=== PATIENT | male | born 1960 | race Caucasian/White ===

== ENCOUNTER 2017-02-09 07:59 | Outpatient (CLI) | payer OTHER ==
[2017-02-09 11:51] LABS: BUN - BLOOD UREA NITROGEN 18 mg/dL (6-20); CALCIUM 8.9 mg/dL (8.5-10.3); CARBON DIOXIDE - CO2 27 mmol/L (21-32); CHLORIDE 101 mmol/L (101-111); CHOL/HDL RATIO 4.3 (<5.0); CHOLESTEROL 156 mg/dL; GFR - MDRD 77 (>89); GLUCOSE 323 mg/dL (70-100); HDL CHOLESTEROL 36 mg/dL; LDL/HDL RATIO 2.8 (<3.6); POTASSIUM 4.3 mmol/L (3.5-5.0); SODIUM 136 mmol/L (135-145); TRIGLYCERIDES 99 mg/dL; VLDL CHOLESTEROL 20 mg/dL
[2017-02-09 12:10] LABS: HEMOGLOBIN A1C 1.7 g/dL
== END 2017-02-09 08:00 | disposition home or self-care (01) ==
LOC: LAB.F 07:59
PROVIDERS: ATTEND Internal Medicine
DX: Z00.00 Encounter for general adult medical examination without abnormal findings (principal); J30.9 Allergic rhinitis, unspecified; E11.9 Type 2 diabetes mellitus without complications; E78.5 Hyperlipidemia, unspecified; M23.50 Chronic instability of knee, unspecified knee; Z12.11 Encounter for screening for malignant neoplasm of colon; Z11.59 Encounter for screening for other viral diseases
CPT/HCPCS: 36415; 80048; 80061; 82043; 82570; 83036; 86803

== ENCOUNTER 2017-04-07 08:21 | Outpatient (CLI) | payer OTHER ==
[2017-04-07 10:39] LABS: HB2 TOTAL 12.6 g/dL; HEMOGLOBIN A1C 1.03 g/dL; HEMOGLOBIN A1C % 9.6 % (4.6-6.2)
== END 2017-04-07 08:22 | disposition home or self-care (01) ==
LOC: LAB.F 08:21
PROVIDERS: ATTEND Internal Medicine
DX: Z00.00 Encounter for general adult medical examination without abnormal findings (principal); J30.9 Allergic rhinitis, unspecified; E11.9 Type 2 diabetes mellitus without complications; E78.5 Hyperlipidemia, unspecified; Z12.11 Encounter for screening for malignant neoplasm of colon
CPT/HCPCS: 36415; 83036

== ENCOUNTER 2017-12-28 19:20 | Outpatient (CLI) | payer OTHER | END 2017-12-28 19:21 | disposition EMS.NT | LOC: EMS 19:20 | PROVIDERS: ATTEND Surgery | DX: R10.9 Unspecified abdominal pain (principal) ==

== ENCOUNTER 2018-01-29 09:12 | Outpatient (CLI) | payer OTHER ==
[2018-01-29 18:42] LABS: BUN - BLOOD UREA NITROGEN 21 mg/dL (6-20); CALCIUM 8.8 mg/dL (8.5-10.3); CARBON DIOXIDE - CO2 29 mmol/L (21-32); CHLORIDE 101 mmol/L (101-111); CHOL/HDL RATIO 3.3 (<5.0); CHOLESTEROL 136 mg/dL; GFR - MDRD 76 (>89); GLUCOSE 178 mg/dL (70-100); HDL CHOLESTEROL 41 mg/dL; LDL CHOLESTEROL,CALCULATED 79 mg/dL; LDL/HDL RATIO 1.9 (<3.6); SODIUM 137 mmol/L (135-145); VLDL CHOLESTEROL 16 mg/dL
[2018-01-29 18:43] LABS: CREATININE,URINE 203.4 mg/dL; MICROALBUM/CREATININE RATIO,UR 42.8 ug/mg (<30.0); MICROALBUMIN,URINE 8.7 mg/dL (0-300.0)
[2018-01-29 19:10] LABS: HB2 TOTAL 15.5 g/dL; HEMOGLOBIN A1C 1.32 g/dL; HEMOGLOBIN A1C % 9.9 % (4.6-6.2)
== END 2018-01-29 09:13 | disposition home or self-care (01) ==
LOC: LAB.F 09:12
PROVIDERS: ATTEND Internal Medicine
DX: Z00.00 Encounter for general adult medical examination without abnormal findings (principal); H35.30 Unspecified macular degeneration; J30.9 Allergic rhinitis, unspecified; R07.9 Chest pain, unspecified; E11.40 Type 2 diabetes mellitus with diabetic neuropathy, unspecified; E11.319 Type 2 diabetes mellitus with unspecified diabetic retinopathy without macular edema; R03.0 Elevated blood-pressure reading, without diagnosis of hypertension; E78.5 Hyperlipidemia, unspecified; E11.21 Type 2 diabetes mellitus with diabetic nephropathy; M23.50 Chronic instability of knee, unspecified knee; Z12.11 Encounter for screening for malignant neoplasm of colon
CPT/HCPCS: 36415; 80048; 80061; 82043; 82570; 83036; 83721; 84156

== ENCOUNTER 2018-11-14 08:12 | Outpatient (CLI) | payer OTHER ==
[2018-11-14 10:22] LABS: HB2 TOTAL 12.2 g/dL; HEMOGLOBIN A1C 1.02 g/dL; HEMOGLOBIN A1C % 9.8 % (4.6-6.2)
== END 2018-11-14 08:13 | disposition home or self-care (01) ==
LOC: LAB.S 08:12
PROVIDERS: ATTEND Internal Medicine
DX: E11.9 Type 2 diabetes mellitus without complications (principal)
CPT/HCPCS: 36415; 83036

== ENCOUNTER 2018-12-25 09:19 | Outpatient (CLI) | payer OTHER ==
[2018-12-25 18:13] LABS: HB2 TOTAL 12.3 g/dL; HEMOGLOBIN A1C 0.73 g/dL; HEMOGLOBIN A1C % 7.6 % (4.6-6.2)
== END 2018-12-25 09:20 | disposition home or self-care (01) ==
LOC: LAB.S 09:19
PROVIDERS: ATTEND Internal Medicine
DX: E11.9 Type 2 diabetes mellitus without complications (principal); Z12.11 Encounter for screening for malignant neoplasm of colon
CPT/HCPCS: 36415; 83036

== ENCOUNTER 2019-02-18 10:54 | Outpatient (CLI) | payer OTHER ==
[2019-02-18 18:03] LABS: BUN - BLOOD UREA NITROGEN 25 mg/dL (6-20); CARBON DIOXIDE - CO2 29 mmol/L (21-32); CHLORIDE 99 mmol/L (101-111); CHOL/HDL RATIO 4.1 (<5.0); CHOLESTEROL 186 mg/dL; CREATININE 1.2 mg/dL (0.6-1.2); GFR - MDRD 62 (>89); GLUCOSE 341 mg/dL (70-100); HDL CHOLESTEROL 45 mg/dL; LDL CHOLESTEROL,CALCULATED 118 mg/dL; LDL/HDL RATIO 2.6 (<3.6); SODIUM 136 mmol/L (135-145); VLDL CHOLESTEROL 23 mg/dL
[2019-02-18 18:09] LABS: CREATININE,URINE 47.8 mg/dL; MICROALBUM/CREATININE RATIO,UR 81.6 ug/mg (<30.0); MICROALBUMIN,URINE 3.9 mg/dL (0-300.0)
[2019-02-18 18:52] LABS: HB2 TOTAL 12.6 g/dL; HEMOGLOBIN A1C 0.7 g/dL; HEMOGLOBIN A1C % 7.2 % (4.6-6.2)
== END 2019-02-18 10:55 | disposition home or self-care (01) ==
LOC: LAB.S 10:54
PROVIDERS: ATTEND Internal Medicine
DX: Z00.00 Encounter for general adult medical examination without abnormal findings (principal); Z12.11 Encounter for screening for malignant neoplasm of colon; J30.9 Allergic rhinitis, unspecified; H35.30 Unspecified macular degeneration; E11.21 Type 2 diabetes mellitus with diabetic nephropathy; E11.319 Type 2 diabetes mellitus with unspecified diabetic retinopathy without macular edema; E78.5 Hyperlipidemia, unspecified
CPT/HCPCS: 36415; 80048; 80061; 82043; 82270; 82274; 82570; 83036; 83721

== ENCOUNTER 2019-05-10 09:57 | Outpatient (CLI) | payer OTHER ==
[2019-05-10 18:21] LABS: HB2 TOTAL 13.1 g/dL; HEMOGLOBIN A1C 0.69 g/dL
== END 2019-05-10 09:58 | disposition home or self-care (01) ==
LOC: LAB.S 09:57
PROVIDERS: ATTEND Internal Medicine
DX: E11.9 Type 2 diabetes mellitus without complications (principal)
CPT/HCPCS: 36415; 83036

== ENCOUNTER 2020-01-09 08:24 | Outpatient (CLI) | payer OTHER ==
[2020-01-09 16:05] LABS: CREATININE,URINE 322.5 mg/dL; MICROALBUM/CREATININE RATIO,UR 18.9 ug/mg (<30.0); MICROALBUMIN,URINE 6.1 mg/dL (0-300.0)
[2020-01-09 16:08] LABS: BUN - BLOOD UREA NITROGEN 41 mg/dL (6-20); CALCIUM 8.9 mg/dL (8.5-10.3); CARBON DIOXIDE - CO2 28 mmol/L (21-32); CHLORIDE 104 mmol/L (101-111); CHOL/HDL RATIO 3.9 (<5.0); CHOLESTEROL 147 mg/dL; CREATININE 1.5 mg/dL (0.6-1.2); GLUCOSE 128 mg/dL (70-100); HDL CHOLESTEROL 38 mg/dL; LDL CHOLESTEROL,CALCULATED 93 mg/dL; LDL/HDL RATIO 2.4 (<3.6); SODIUM 139 mmol/L (135-145); VLDL CHOLESTEROL 16 mg/dL
[2020-01-09 19:51] LABS: HEMOGLOBIN A1c% 6.9 % (4.27-6.07)
== END 2020-01-09 08:25 | disposition home or self-care (01) ==
LOC: LAB.S 08:24
PROVIDERS: ATTEND Internal Medicine
DX: E11.9 Type 2 diabetes mellitus without complications (principal); E78.5 Hyperlipidemia, unspecified
CPT/HCPCS: 36415; 80048; 80061; 82043; 82570; 83036; 83721

== ENCOUNTER 2020-01-11 16:23 | Outpatient (CLI) | payer OTHER | END 2020-01-11 16:24 | disposition critical access hospital (66) | LOC: EMS 16:23 | PROVIDERS: ATTEND Surgery | DX: S01.01XA Laceration without foreign body of scalp, initial encounter (principal); R11.2 Nausea with vomiting, unspecified; W20.8XXA Other cause of strike by thrown, projected or falling object, initial encounter; Y93.89 Activity, other specified; Y92.009 Unspecified place in unspecified non-institutional (private) residence as the place of occurrence of the external cause | CPT/HCPCS: A0425; A0427 ==

== ENCOUNTER 2020-01-11 17:06 | Emergency (ER) | payer OTHER ==
[2020-01-11] MEDS ORDERED: ONDANSETRON 4 MG/2 ML VIAL IVP STA (17:10)
--- NOTE | 2020-01-11 17:11 | ED Physician Documentation ---
PD HPI HEADACHE - Stated complaint Stated Complaint: HEAD LAC - History obtained from History obtained from: Patient - Additional information Additional information: He was moving brush with his tractor, accidentally hit a tree and a large branch fell down and hit him on the top of the head with loss of consciousness. Has a mild headache but has vomited several times. No other injuries. He is up-to-date on tetanus. Review of Systems Constitutional: reports: Reviewed and negative Ears: reports: Reviewed and negative Nose: reports: Reviewed and negative Throat: reports: Reviewed and negative PD PAST MEDICAL HISTORY - Past Medical History Cardiovascular: High cholesterol Respiratory: None Endocrine/Autoimmune: Type 2 diabetes GI: None : None Psych: None Musculoskeletal: None Derm: None - Past Surgical History Past Surgical History: No - Present Medications Home Medications: Ambulatory Orders Medication Instructions Recorded Confirmed Metformin HCl [Fortamet] 1,000 mg PO BID 12/14/12 12/14/12 Simvastatin [Zocor] 80 mg PO HS 12/14/12 12/14/12 Mometasone Furoate [Nasonex] 1 spray NS BID #1 spray.pump 01/11/20 - Allergies Allergies/Adverse Reactions: Allergies Allergy/AdvReac Type Severity Reaction Status Date / Time aspirin [From Percodan] Allergy Nausea Verified 01/11/20 17:12 oxycodone [From Percodan] Allergy Nausea Verified 01/11/20 17:12 - Social History Does the pt smoke?: Yes Smoking Status: Current some day smoker Does the pt drink ETOH?: No Does the pt have substance abuse?: No - Immunizations Immunizations are current?: Yes - POLST Patient has POLST: No PD ED PE NORMAL - Vitals Vital signs reviewed: Yes - General General: Alert and oriented X 3, No acute distress - HEENT HEENT: PERRL, EOMI, Other (There is a shallow laceration measuring 3 cm on the right frontal parietal area.) - Neck Neck: No bony TTP (But maintained in a c-collar pending imaging given potential head injury.) - Neuro Neuro: Alert and oriented X 3, No motor deficit, No sensory deficit, Normal speech Results - Vitals Vitals: Vital Signs - 24 hr 01/11/20 17:06 Temperature 36.5 C Heart Rate 90 Respiratory 18 Rate Blood Pressure 163/118 H O2 Saturation 99 Oxygen O2 Source Room air - Rads (name of study) CT Head and C spine Radiology: EMP read contemporaneously (Degenerative changes, sinus disease, no intracranial hemorrhage or skull fracture or C-spine fracture) Procedures - Laceration (location) Scalp Length in cm: 2 Wound type: Stellate Wound Preparation: Irrigated copiously NS Skin layer closure: Dermabond Other: Tetanus UTD Complexity: Simple PD MEDICAL DECISION MAKING - ED course ED course: 59-year-old gentleman presents after being hit in the head with a large branch that fell from a height. He seems slightly concussed with loss of consciousness and nausea/vomiting. CT showed incidental findings. He already knew about the sinus disease and is seeing ENT, will start a nasal steroid. On further exam after wound irrigation the scalp laceration did need a closure and was closed with Dermabond. Departure - Departure Disposition: 01 Home, Self Care Clinical Impression: Concussion Qualifiers: Encounter type: initial encounter Loss of consciousness presence/duration: with LOC of 30 min or less Qualified Code(s): S06.0X1A - Concussion with loss of consciousness of 30 minutes or less, initial encounter Scalp laceration Qualifiers: Encounter type: initial encounter Qualified Code(s): S01.01XA - Laceration without foreign body of scalp, initial encounter Condition: Good Record reviewed to determine appropriate education?: Yes Instructions: ED Laceration Facial Skin Glue, ED Concussion Prescriptions: Mometasone Furoate [Nasonex] 1 spray NS BID #1 spray.pump Comments: Follow-up with your ENT surgeon, return if worsening.
--- NOTE | 2020-01-11 17:34 | CT Report ---
PROCEDURE: HEAD WO INDICATIONS: head injury TECHNIQUE: Noncontrast 4.5 mm thick angled axial sections acquired from the foramen magnum to the vertex. For r adiation dose reduction, the following was used: automated exposure control, adjustment of mA and/or kV according to patient size. COMPARISON: Correlation is made with a coming cervical spine CT, 01/11/2020 FINDINGS: Image quality: Excellent. CSF spaces: Basal cisterns are patent. No extra-axial fluid collections. Ventricles are normal in size and shape. Brain: No midline shift. No intracranial masses or hemorrhage. Dominguez-white matter interface is norm al. Skull and face: There is minimal scalp thickening with laceration and hemorrhage involving the right anterior superior scalp. No underlying calvarial fracture is seen. Calvarium and visualized facial b ones are intact, without suspicious lesions. Sinuses: There is subtotal opacification of the left maxillary sinus. Prominent mucosal thickening is seen within the ethmoid air cells. Milder mucosal thickening is seen elsewhere within the visualized paranasal sinuses. No significant abnormal fluid can be seen within the mastoid air cells or within the middle ear cavities. IMPRESSION: No intracranial hemorrhage is seen. No significant intracranial abnormality is seen. Right superior anterior scalp laceration, without an associated fracture. Prominent paranasal sinus disease can be seen. Reviewed by: Alen Blackwood MD on 01/11/2020 4:33 PM [facility] Approved by: Alen Blackwood MD on 01/11/2020 4:33 PM [facility] Station ID: [id number]
--- NOTE | 2020-01-11 17:36 | CT Report ---
PROCEDURE: CERVICAL SPINE WO INDICATIONS: head injury TECHNIQUE: Noncontrast 3 mm thick sections acquired from the skull base to the T4 level. Sagittal and coronal r eformats were then constructed. For radiation dose reduction, the following was used: automated exp osure control, adjustment of mA and/or kV according to patient size. COMPARISON: Correlation is made with the accompanying head CT, 01/11/2020. FINDINGS: Image quality: This study is limited by quantum mottle artifact. Bones: No fractures or dislocations. Visualized superior ribs are intact. Degenerative changes are seen, with moderate to severe disc space narrowing at C5-C6, with associated endplate irregularity and bony bridging anteriorly. Focal degenerative change can also be seen invol ving the C1-C2 interface anteriorly. Milder degenerative changes are seen elsewhere. Soft tissues: Prevertebral soft tissues are normal in thickness. No paravertebral hematomas. No ap ical pneumothoraces. IMPRESSION: No displaced fractures are identified. Focal C5-C6 degenerative change. Reviewed by: Alen Blackwood MD on 01/11/2020 4:35 PM [facility] Approved by: Alen Blackwood MD on 01/11/2020 4:35 PM [facility] Station ID: [id number]
[2020-01-11 18:10] VITALS: BP 168/92
== END 2020-01-11 18:08 | disposition home or self-care (01) ==
LOC: EDUNIT# → ED 17:06
DX: S06.0X1A Concussion with loss of consciousness of 30 minutes or less, initial encounter (principal); S01.01XA Laceration without foreign body of scalp, initial encounter; W22.8XXA Striking against or struck by other objects, initial encounter; Y93.H2 Activity, gardening and landscaping; E11.9 Type 2 diabetes mellitus without complications; Z79.84 Long term (current) use of oral hypoglycemic drugs; F17.200 Nicotine dependence, unspecified, uncomplicated
CPT/HCPCS: 12001; 70450; 72125; 99283

== ENCOUNTER 2020-04-01 11:12 | Outpatient (CLI) | payer OTHER ==
[2020-04-01 16:49] LABS: BUN - BLOOD UREA NITROGEN 22 mg/dL (6-20); CALCIUM 8.9 mg/dL (8.5-10.3); CARBON DIOXIDE - CO2 28 mmol/L (21-32); CHLORIDE 99 mmol/L (101-111); CHOL/HDL RATIO 4.3 (<5.0); CHOLESTEROL 184 mg/dL; CREATININE 1.2 mg/dL (0.6-1.2); GLUCOSE 327 mg/dL (70-100); HDL CHOLESTEROL 43 mg/dL; LDL CHOLESTEROL,CALCULATED 115 mg/dL; LDL/HDL RATIO 2.7 (<3.6); SODIUM 138 mmol/L (135-145); VLDL CHOLESTEROL 26 mg/dL
[2020-04-01 17:19] LABS: CREATININE,URINE 46.1 mg/dL; MICROALBUM/CREATININE RATIO,UR 34.7 ug/mg (<30.0); MICROALBUMIN,URINE 1.6 mg/dL (0-300.0)
[2020-04-01 19:22] LABS: HEMOGLOBIN A1c% 6.6 % (4.27-6.07)
== END 2020-04-01 11:13 | disposition home or self-care (01) ==
LOC: LAB.S 11:12
PROVIDERS: ATTEND Internal Medicine
DX: E11.9 Type 2 diabetes mellitus without complications (principal); E78.5 Hyperlipidemia, unspecified
CPT/HCPCS: 36415; 80048; 80061; 82043; 82570; 83036; 83721

== ENCOUNTER 2020-04-28 09:29 | Outpatient (CLI) | payer OTHER ==
[2020-04-28 15:22] LABS: CALCIUM 8.8 mg/dL (8.5-10.3); CREATININE 1.3 mg/dL (0.6-1.2)
== END 2020-04-28 09:30 | disposition home or self-care (01) ==
LOC: LAB.S 09:29
PROVIDERS: ATTEND Internal Medicine
DX: E11.9 Type 2 diabetes mellitus without complications (principal)
CPT/HCPCS: 36415; 80048

== ENCOUNTER 2021-04-09 09:45 | Outpatient (CLI) | payer OTHER ==
[2021-04-09 15:43] LABS: ESTIMATED AVERAGE GLUCOSE 163 mg/dL (70-100); HEMOGLOBIN A1c% 7.3 % (4.27-6.07)
[2021-04-09 15:48] LABS: MICROALBUM/CREATININE RATIO,UR 19.8 ug/mg (<30.0)
[2021-04-09 15:51] LABS: BUN - BLOOD UREA NITROGEN 19 mg/dL (6-20); CALCIUM 8.5 mg/dL (8.5-10.3); CARBON DIOXIDE - CO2 28 mmol/L (21-32); CHLORIDE 101 mmol/L (101-111); CHOL/HDL RATIO 5.7 (<5.0); CHOLESTEROL 240 mg/dL; CREATININE 1.1 mg/dL (0.6-1.2); GFR - MDRD 68 (>89); GLUCOSE 222 mg/dL (70-100); HDL CHOLESTEROL 42 mg/dL; LDL CHOLESTEROL,CALCULATED 177 mg/dL; LDL/HDL RATIO 4.2 (<3.6); POTASSIUM 4.3 mmol/L (3.5-5.0); SODIUM 136 mmol/L (135-145); TRIGLYCERIDES 106 mg/dL; VLDL CHOLESTEROL 21 mg/dL
== END 2021-04-09 09:46 | disposition home or self-care (01) ==
LOC: LAB.S 09:45
PROVIDERS: ATTEND Internal Medicine
DX: E11.9 Type 2 diabetes mellitus without complications (principal); I10 Essential (primary) hypertension
CPT/HCPCS: 36415; 80048; 80061; 82043; 82570; 83036; 83721

== ENCOUNTER 2022-01-07 21:47 | Emergency (ER) | payer OTHER ==
[2022-01-07] MEDS ORDERED: oxyCODONE/ACET 5/325 Prepack 4 PO STA (22:38)
[2022-01-07] MEDS ORDERED: PENICILLIN VK 250 MG TABLET PO STA (22:38)
--- NOTE | 2022-01-07 22:59 | ED Physician Documentation ---
PD HPI HEENT - Stated complaint Stated Complaint: TOOTH PX/LOW BLOOD SUGAR - Chief complaint Chief Complaint: Heent - History obtained from History obtained from: Patient - Additional information Additional information: Patient is a 61-year-old insulin-dependent diabetic presenting for evaluation of left upper and lower dental pain that has been worsening for the last 2 days. He took his normal insulin this evening but the pain in his teeth prevented him from eating any food and he felt that his blood sugar was low.He was given juice after blood sugar was checked at triage and is starting to feel better. Review of Systems Constitutional: denies: Fever Throat: reports: Dental pain / toothache Cardiac: denies: Chest pain / pressure Respiratory: denies: Dyspnea GI: denies: Abdominal Pain Musculoskeletal: denies: Back pain Neurologic: denies: Headache PD PAST MEDICAL HISTORY - Past Medical History Cardiovascular: High cholesterol Respiratory: None Endocrine/Autoimmune: Type 2 diabetes GI: None : None Psych: None Musculoskeletal: None Derm: None - Past Surgical History Past Surgical History: No - Present Medications Home Medications: Ambulatory Orders Medication Instructions Recorded Confirmed Metformin HCl [Fortamet] 1,000 mg PO BID 12/14/12 12/14/12 Simvastatin [Zocor] 80 mg PO HS 12/14/12 12/14/12 Mometasone Furoate [Nasonex] 1 spray NS BID #1 spray.pump 01/11/20 Oxycodone HCl/Acetaminophen 1 each PO Q6H PRN #10 tablet 01/07/22 [Percocet 5-325 mg Tablet] Penicillin V Potassium 500 mg PO Q6HR 7 Days #28 tablet 01/07/22 - Allergies Allergies/Adverse Reactions: Allergies Allergy/AdvReac Type Severity Reaction Status Date / Time aspirin [From Percodan] Allergy Nausea Verified 01/07/22 22:02 oxycodone [From Percodan] Allergy Nausea Verified 01/07/22 22:02 - Social History Does the pt smoke?: Yes Smoking Status: Current some day smoker Does the pt drink ETOH?: No Does the pt have substance abuse?: No - Immunizations Immunizations are current?: Yes - POLST Patient has POLST: No PD ED PE NORMAL - General General: Alert and oriented X 3, No acute distress, Well developed/nourished - HEENT HEENT: Atraumatic, Moist mucous membranes, Pharynx benign. No: Dentition benign (Tenderness to left upper and lower molars with fillings in place, no visible abscess or exposed nerve, no oral swelling, normal speech) - Cardiac Cardiac: RRR, Strong equal pulses - Respiratory Respiratory: No respiratory distress - Abdomen Abdomen: Soft, Non tender - Derm Derm: Warm and dry - Extremities Extremities: No edema - Neuro Neuro: Alert and oriented X 3, No motor deficit, Normal speech Results - Vitals Vitals: Vital Signs - 24 hr 01/07/22 01/07/22 21:54 23:06 Temperature 36 C L 36.4 C L Heart Rate 88 80 Respiratory 18 18 Rate Blood Pressure 159/82 H 128/87 H O2 Saturation 98 100 Oxygen O2 Source Room air - Labs Labs: Laboratory Tests 01/07/22 01/07/22 22:07 22:50 POC Whole Bld Glucose 59 L* 79 PD MEDICAL DECISION MAKING - ED course ED course: Patient with dental pain. No signs of oral abscess. No signs of airway compromise. Patient started on antibiotics and given pain medication to help him eat as he is an insulin-dependent diabetic and did not want to eat this evening due to the pain. His blood sugar was noted to be 59 and it did improve with juice. I offered a sandwich but he declined as he has pizza waiting for him at home and feels that he will be able to eat it. His partner at the bedside also has a protein shake for him in the car. He will check his blood sugar this evening before going to bed. He is advised on concerning symptoms to return for as well as need for dental follow-up. Departure - Departure Disposition: 01 Home, Self Care Clinical Impression: Dental infection, Hypoglycemia Condition: Stable Instructions: ED Tooth Pain, ED Diabetes Hypoglycemia Insulin React Prescriptions: Penicillin V Potassium 500 mg PO Q6HR 7 Days #28 tablet Oxycodone HCl/Acetaminophen [Percocet 5-325 mg Tablet] 1 each PO Q6H PRN #10 tablet PRN Reason: pain Comments: You have a dental infection. I have started you on antibiotic called penicillin. I have also sent a prescription for pain medications to [facility] in [place]. Please make sure to call your dentist on Monday morning. Your blood sugar was also low because you have not been able to eat very much. Now that your pain has improved I would encourage you to go home and eat something with protein and complex carbohydrates. Please make sure to check your blood sugar again this evening. If you have any concerning symptoms please return to the ER. Discharge Date/Time: 01/07/22 23:06
[2022-01-07 23:07] VITALS: BP 128/87
== END 2022-01-07 23:06 | disposition home or self-care (01) ==
LOC: ED 21:47
DX: E11.649 Type 2 diabetes mellitus with hypoglycemia without coma (principal); Z79.4 Long term (current) use of insulin; F17.200 Nicotine dependence, unspecified, uncomplicated; K04.7 Periapical abscess without sinus
CPT/HCPCS: 99282; 99283; A9270

== ENCOUNTER 2022-06-06 07:53 | Outpatient (CLI) | payer OTHER ==
[2022-06-06 14:27] LABS: CREATININE,URINE 128.2 mg/dL; MICROALBUMIN,URINE 3.2 mg/dL (0-300.0)
[2022-06-06 14:32] LABS: BUN - BLOOD UREA NITROGEN 29 mg/dL (6-20); CALCIUM 9.1 mg/dL (8.5-10.3); CARBON DIOXIDE - CO2 29 mmol/L (21-32); CHLORIDE 105 mmol/L (101-111); CHOL/HDL RATIO 5.7 (<5.0); CHOLESTEROL 257 mg/dL; CREATININE 1.2 mg/dL (0.6-1.2); GFR - MDRD 61 (>89); GLUCOSE 220 mg/dL (70-100); HDL CHOLESTEROL 45 mg/dL; LDL CHOLESTEROL,CALCULATED 185 mg/dL; LDL/HDL RATIO 4.1 (<3.6); POTASSIUM 4.6 mmol/L (3.5-5.0); SODIUM 138 mmol/L (135-145); TRIGLYCERIDES 136 mg/dL; VLDL CHOLESTEROL 27 mg/dL
[2022-06-06 15:03] LABS: ESTIMATED AVERAGE GLUCOSE 189 mg/dL (70-100); HEMOGLOBIN A1c% 8.2 % (4.27-6.07)
== END 2022-06-06 07:54 | disposition home or self-care (01) ==
LOC: LAB.S 07:53
PROVIDERS: ATTEND Internal Medicine
DX: E11.9 Type 2 diabetes mellitus without complications (principal)
CPT/HCPCS: 36415; 80048; 80061; 82043; 82570; 83036; 83721

== ENCOUNTER 2022-12-15 07:59 | Outpatient (CLI) | payer OTHER ==
[2022-12-15 14:57] LABS: BUN - BLOOD UREA NITROGEN 28 mg/dL (6-20); CALCIUM 9.2 mg/dL (8.5-10.3); CARBON DIOXIDE - CO2 29 mmol/L (21-32); CHLORIDE 105 mmol/L (101-111); CHOL/HDL RATIO 5.7 (<5.0); CHOLESTEROL 267 mg/dL; CREATININE 1.2 mg/dL (0.6-1.3); GFR - MDRD 61 (>89); GLUCOSE 222 mg/dL (74-104); HDL CHOLESTEROL 47 mg/dL; LDL CHOLESTEROL,CALCULATED 193 mg/dL; LDL/HDL RATIO 4.1 (<3.6); POTASSIUM 4.7 mmol/L (3.5-4.5); SODIUM 138 mmol/L (135-145); TRIGLYCERIDES 136 mg/dL (48-352); VLDL CHOLESTEROL 27 mg/dL
[2022-12-15 15:00] LABS: CREATININE,URINE 188.3 mg/dL; MICROALBUM/CREATININE RATIO,UR 10.6 ug/mg (<30.0)
[2022-12-15 18:38] LABS: ESTIMATED AVERAGE GLUCOSE 212 mg/dL (70-100)
== END 2022-12-15 08:00 | disposition home or self-care (01) ==
LOC: LAB.S 07:59
PROVIDERS: ATTEND Internal Medicine
DX: E11.9 Type 2 diabetes mellitus without complications (principal); Z12.11 Encounter for screening for malignant neoplasm of colon
CPT/HCPCS: 36415; 80048; 80061; 82043; 82570; 83036; 83721

== ENCOUNTER 2023-01-09 15:51 | Outpatient (CLI) | payer OTHER ==
--- NOTE | 2023-01-09 16:20 | XRAY Report ---
PROCEDURE: Shoulder 2 View LT INDICATIONS: LFT ROTATOR CUFF TEAR TECHNIQUE: 2 views of the shoulder were acquired. COMPARISON: None. FINDINGS: Bones: No fractures or dislocations. No suspicious bony lesions. Visualized ribs appear intact. Mild high riding appearance of the humeral head. Soft tissues: No suspicious soft tissue calcifications. The visualized lungs are within normal limi ts. IMPRESSION: High riding humeral head which can be seen with rotator cuff pathology. Reviewed by: Natasha Guevara MD on 01/09/2023 4:19 PM PDT Approved by: Natasha Guevara MD on 01/09/2023 4:19 PM PDT Station ID: [id number]
== END 2023-01-09 15:52 | disposition home or self-care (01) ==
LOC: DI.S 15:51
PROVIDERS: ATTEND Physician Assistant Medical
DX: M75.102 Unspecified rotator cuff tear or rupture of left shoulder, not specified as traumatic (principal)

== ENCOUNTER 2023-03-18 07:50 | Outpatient (CLI) | payer OTHER ==
--- NOTE | 2023-03-20 12:09 | MRI Report ---
PROCEDURE: SHOULDER WO - LT INDICATIONS: L ADHESIVE CAPSULITIS TECHNIQUE: Noncontrast oblique coronal T2 fast spin echo with fat saturation, oblique sagittal T1 spin echo and T2 fast spin echo with fat saturation, axial T1 spin echo and T2 fast spin echo with fat saturation a n 3 gradient echo through the shoulder. COMPARISON: Left shoulder radiographs 01/09/2023 FINDINGS: Image quality: Excellent. Rotator cuff: Moderate supraspinatus and infraspinatus tendinosis. The teres minor tendon is intact. There is moderate subscapularis tendinosis. No significant rotator cuff tendon tear is seen. There is no significant rotator cuff muscle atrophy. Bones and bursae: No acute trabecular bone injury or fracture. Chronic traction cystic changes are se en at the posterosuperior humeral head. Mild partial thickness cartilage irregularity is seen in the glenohumeral joint with mild degenerative spurring in the glenoid rim. Moderate degenerative changes are seen at the acromioclavicular joint with subchondral cystic changes and marginal osteophytes. The re is a small amount of fluid in the subacromial/subdeltoid bursa. No significant glenohumeral effusi on. Capsule and soft tissues: Intermediate intrasubstance signal is seen throughout the majority of the l abrum, consistent with intrasubstance degeneration. No acute displaced labral tear is seen. The proxi mal biceps long head tendon demonstrates moderate tendinosis. There is effacement of the normal fat s ignal in the rotator interval. There is thickening of the anterior band of the inferior glenohumeral ligament and the middle glenohumeral ligament. IMPRESSION: 1.Effacement of the rotator interval fat and mild thickening of the middle and inferior glenohumeral ligaments are nonspecific, but can be seen in the setting of the clinical syndrome of adhesive capsul itis. 2.Moderate diffuse rotator cuff tendinosis involving the supraspinatus, infraspinatus, and subscapula ris tendons. No significant rotator cuff tendon tearing. 3.Moderate proximal biceps long head tendinosis. 4.Mild diffuse labral degeneration. Grade 2 chondromalacia in the glenohumeral joint. 5.Moderate acromioclavicular joint osteoarthrosis. 6.Small subacromial/subdeltoid bursal effusion or mild bursitis. Reviewed by: Luis Puentes MD on 03/20/2023 12:08 PM PST Approved by: Luis Puentes MD on 03/20/2023 12:08 PM PST Station ID: [id number]
== END 2023-03-18 07:51 | disposition home or self-care (01) ==
LOC: DI 07:50
PROVIDERS: ATTEND Orthopaedic Surgery
DX: M75.02 Adhesive capsulitis of left shoulder (principal); M75.92 Shoulder lesion, unspecified, left shoulder; M67.88 Other specified disorders of synovium and tendon, other site; M94.212 Chondromalacia, left shoulder; M19.012 Primary osteoarthritis, left shoulder

== ENCOUNTER 2023-04-07 07:41 | Outpatient (CLI) | payer OTHER ==
[2023-04-07 15:37] LABS: CREATININE 1.2 mg/dL (0.6-1.3); POTASSIUM 4.3 mmol/L (3.5-4.5)
[2023-04-07 15:45] LABS: BILIRUBIN,URINE NEGATIVE (NEGATIVE); GLUCOSE, URINE (UA) 100 mg/dL (NEGATIVE); KETONES,URINE (UA) NEGATIVE (NEGATIVE); LEUKOCYTE ESTERASE, URINE NEGATIVE (NEGATIVE); NITRITE,URINE NEGATIVE (NEGATIVE); OCCULT BLOOD,URINE NEGATIVE (NEGATIVE); PH,URINE 5.5 PH (5.0-7.5); PROTEIN,URINE NEGATIVE (NEGATIVE); UROBILINOGEN,URINE 0.2 (NORMAL) E.U./dL (NORMAL)
[2023-04-07 15:52] LABS: CLARITY,URINE CLEAR (CLEAR)
[2023-04-07 20:22] LABS: ESTIMATED AVERAGE GLUCOSE 200 mg/dL (70-100); HEMOGLOBIN A1c% 8.6 % (4.27-6.07)
== END 2023-04-07 07:42 | disposition home or self-care (01) ==
LOC: LAB.S 07:41
PROVIDERS: ATTEND Physician Assistant Medical
DX: E11.9 Type 2 diabetes mellitus without complications (principal)
CPT/HCPCS: 36415; 80048; 81001; 81003; 83036

== ENCOUNTER 2023-04-19 08:15 | Outpatient (CLI) | payer OTHER ==
[2023-04-19 15:49] LABS: CALCIUM 9.2 mg/dL (8.5-10.3); CREATININE 1.2 mg/dL (0.6-1.3); POTASSIUM 4.4 mmol/L (3.5-4.5)
[2023-04-19 20:50] LABS: ESTIMATED AVERAGE GLUCOSE 200 mg/dL (70-100); HEMOGLOBIN A1c% 8.6 % (4.27-6.07)
== END 2023-04-19 08:16 | disposition home or self-care (01) ==
LOC: LAB.S 08:15
PROVIDERS: ATTEND Physician Assistant Medical
DX: E11.9 Type 2 diabetes mellitus without complications (principal)
CPT/HCPCS: 36415; 80048; 83036

== ENCOUNTER 2023-05-31 07:20 | Outpatient (CLI) | payer OTHER ==
[2023-05-31 15:37] LABS: CHOL/HDL RATIO 4.2 (<5.0); CHOLESTEROL 152 mg/dL; HDL CHOLESTEROL 36 mg/dL; LDL CHOLESTEROL,CALCULATED 94 mg/dL; LDL/HDL RATIO 2.6 (<3.6); TRIGLYCERIDES 111 mg/dL (48-352); VLDL CHOLESTEROL 22 mg/dL
[2023-05-31 20:51] LABS: ESTIMATED AVERAGE GLUCOSE 177 mg/dL (70-100); HEMOGLOBIN A1c% 7.8 % (4.27-6.07)
== END 2023-05-31 07:21 | disposition home or self-care (01) ==
LOC: LAB.S 07:20
PROVIDERS: ATTEND Physician Assistant Medical
DX: E11.9 Type 2 diabetes mellitus without complications (principal); E78.5 Hyperlipidemia, unspecified; Z13.9 Encounter for screening, unspecified
CPT/HCPCS: 36415; 80061; 83036; 83721; 84153

== ENCOUNTER 2023-06-09 08:04 | Outpatient (CLI) | payer OTHER ==
[2023-06-09 16:54] LABS: ALBUMIN/GLOBULIN RATIO 1.5 (1.0-2.2); BILIRUBIN,TOTAL 0.4 mg/dL (0.2-1.0); CALCIUM 9.7 mg/dL (8.5-10.3); CREATININE 1.3 mg/dL (0.6-1.3); POTASSIUM 4.6 mmol/L (3.5-4.5); TOTAL PROTEIN 6.6 g/dL (6.4-8.9)
== END 2023-06-09 08:05 | disposition home or self-care (01) ==
LOC: LAB.S 08:04
PROVIDERS: ATTEND Physician Assistant Medical
DX: M75.102 Unspecified rotator cuff tear or rupture of left shoulder, not specified as traumatic (principal)
CPT/HCPCS: 36415; 80053